=== PATIENT | female | born 1950 | race Caucasian/White ===

== ENCOUNTER 2023-09-19 14:30 | Outpatient (RCR) | payer MEDICARE, BC, SELFPAY | END 2023-12-12 08:47 | disposition home or self-care (01) | PROVIDERS: PCP Family Medicine; Visit Provider Family Medicine | DX: N81.11 Cystocele, midline (principal); R27.8 Other lack of coordination; M79.604 Pain in right leg; R39.15 Urgency of urination; Z51.89 Encounter for other specified aftercare | CPT/HCPCS: 97110; 97112; 97161; 97535 ==

== ENCOUNTER 2024-11-19 08:27 | Inpatient (IN) | payer MEDICARE, BC, SELFPAY ==
[2024-11-19] VITALS (26 sets, daily range): BP systolic 105–125; BP diastolic 67–107; PULSE 83–156; RESP 13–25; TEMP 36.6–36.8; O2SAT 87–97; BMI 35.8
--- OUTSIDE RECORDS SUMMARY | 2024-11-19 08:29 | XMS_ITS | Clinical Summary ---
Author Organization [facility] Address [address] [place] [id number] Care Team Providers Care Industrial Order Clerk Name Role Phone CliffordeddAudrey Primary Care Provider [phone] Allergies Active Allergy Reactions Criticality Noted Date Comments Gluten Intolerance-Can't Take Medium 09/24/2015 Joint and muscle pain Oxycodone Nausea And Vomiting 09/30/2020 Hydrocodone-Acetamino phen Other - Describe In Comment Field 08/07/2014 Vomiting Medications omega-3 fatty acids-vitamin E (FISH OIL) 1,000 mg cap Take by mouth. 0 01/08/20 14 Active calcium-vits X9-Q-M8-minerals 166.75 mg- 166.75 unit cap Take by mouth. 0 10/18/19 18 Active famotidine (PEPCID) 10 mg tablet Take 1 Tablet by mouth once daily. Active fluticasone (50 mcg per actuation) nasal solution (FLONASE)Indicati ons:Postnasal drip Inhale 2 Sprays in both nostrils once daily. 16 g 3 05/13/19 25 Active amLODIPine (NORVASC) 5 mg tabletIndications :Essential hypertension Take 1 Tablet (5 mg) by mouth once daily. 90 Tablet 3 05/13/19 25 Active losartan (COZAAR) 25 mg tabletIndications :Essential hypertension Take 1 Tablet (25 mg) by mouth once daily. 90 Tablet 3 05/13/19 25 Active diclofenac topical (VOLTAREN) 1 % gelIndications:Os teoarthritis, unspecified osteoarthritis type, unspecified site Apply 2-4 g topically to affected area(s) four times daily. Affected joints as needed 450 g 3 05/13/19 25 Active rosuvastatin 10 mg tabletIndications :Other hyperlipidemia TAKE 1 TABLET (10 MG) BY MOUTH AT BEDTIME. 90 Tablet 3 05/21/19 25 Active alendronate 70 mg tabletIndications :Age-related osteoporosis without current pathological fracture TAKE 1 TABLET (70 MG) BY MOUTH ONCE A WEEK IN THE MORNING. TAKE ON EMPTY STOMACH WITH FULL GLASS OF WATER. DO NOT LIE DOWN FOR 1 HR. 13 Tablet 05/21/19 25 Active omeprazole (PRILOSEC) 40 mg Delayed-Release capsuleIndication s:Dysphagia, unspecified type Take 1 Capsule (40 mg) by mouth once daily. 90 Capsule 3 11/15/19 25 Active ipratropium (ATROVENT NASAL) 42 mcg (0.06 %) nasal sprayIndications: Chronic rhinitis Inhale 2 Sprays into affected nostril(s) 3 times daily if needed for Rhinitis. 15 mL 3 11/14/19 25 Active omeprazole (PRILOSEC) 40 mg Delayed-Release capsuleIndication s:Dysphagia, unspecified type TAKE 1 CAPSULE (40 MG) BY MOUTH ONCE DAILY. 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 She also is undersized for repair and is not in the high risk group. I would advise her to undergo a CT in 2 to 3 Age-related osteoporosis wit hout current pathological fracture 10/04/2019 Overview (10/04/2019): T score -2.5 on dexa 09/2019, recommend start fosamax Advanced directives, counseling/discussion 02/14 Overview (02/15/2016): FULL CODE, 02/15/2016 Prolapse of female pelvic organs 08/26/2013 Gluten intolerance 09/22/2011 Colon polyp 02/24/2011 Overview (05/18/2015): Colonoscopy 02/2011 polyp repeat in 5 years Colonoscopy 05/2015 incomplete colonoscopy, recommend CT colonography Arthritis 01/24/2011 Other and unspecified hyperlipidemia 05/07/2007 Overview (05/07/2007): diet controlled - lipids 2004 wnl Unspecified essential hypertension 05/07/2007 Esophageal reflux 05/07/2007 Encounters Date Type Department Care Team Description 11/19/2024 11:20 AM CDT Office Visit [facility] [address] [facility] [place] [address] MD Heart Problem 11/19/2024 Travel 11/13/2024 11:30 AM CDT Office Visit [facility] [address] [place] [address] Tona Escobedo MD Consult (Change in voice /Feeling of foreign body in throat ) 11/12/2024 Refill [facility] [address] [place] [address] Audrey Matute DO Refill Request (Omeprazole) 11/12/2024 Travel 11/10/2024 1:33 PM CDT - 11/10/2024 11:59 PM CDT Hospital Encounter [facility] [address] [place] [address] Audrey Matute DO SOB (shortness of breath) 11/10/2024 Travel 11/07/2024 Telephone [facility] [address] [place] [address] Audrey Matute DO Appointment Request (echocardiogram) 11/07/2024 Orders Only [facility] [address] [place] [place] [address] Audrey Matute DO <No scans attached> 11/06/2024 11:00 AM CDT Ancillary Procedure [facility] [address] [facility] [place] [address] 11/06/2024 10:25 AM CDT Office Visit [facility] [address] [place] [address] Audrey Matute, Follow Up (medication); Shortness Of Breath (Constant SOB, started about 6 weeks ago) 11/06/2024 Travel 11/04/2024 Travel from Last 3 Months Immunizations Immunization Administration Dates Next Due COVID-19 vaccine ([employer] 30mcg/0.3mL) TORRIE BARRAGAN 02/15/2021,07/08/2020,06/17/2020 Pneumococcal Poly,23-Valent (Pneumovax) 04/04/19 18 Pneumococcal conj 13-Valent (Prevnar 13) 016 Family History Medical History Relation Name Comments Blood Disease Maternal Grandfather multip le blood clots, unknown clotting disorder status Cancer-breast Maternal Grandmother Hyperlipidemia Mother Other Mother aortic aneurysm Anesthesia Problem No Family History Cancer-colon No Family History Cancer-ovarian No Family History Relation Name Status Comments Maternal Grandfather Maternal Grandmother Mother (Age 84) aortic ane urysm. ascending Social History Tobacco Use Types Packs/Day Years Used Date Smoking Tobacco: Never Smokeless Tobacco: Never Tobacco Cessation:Counseling Given: No Alcohol Use Standard Drinks/Week Comments No 0 (1 standard drink = 0.6 oz pur e alcohol) PHQ-2 Answer Date Recorded PHQ-2 TOTAL SCORE 0 05/12/2024 Social Connections Answer Date Recorded Do you often feel lonely or isolated from those around you? 0 05/12/2024 Financial Resource Strain Answer Date R ecorded Difficulty of Paying Living Expenses 3 05/12/2024 Difficulty of Paying Living Expenses Not on file 05/12/2024 Food Insecurity Answer Date Recorded Do you worry your food will run out before you are able to buy more? 1 05/12/2024 Transportation Needs Answer Date Record ed Does lack of transportation keep you from medica l appointments? 1 05/12/2024 Does lack of transportation keep you from work, meetings or getting things that you need? 1 05/12/2024 Housing Stability Answer Date Recorded What is your housing situation today? 1 05/12/2024 Utilities Answer Date Recorded Do you have trouble paying f or utilities (for example, heat, electricity, water, phone)? 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 Gender Identity Not on file Sexual Orientation Not on file Obstetrics History Para Term AB IAB SAB Ectopic Multiple Livin g Live Births 3 3 3 3 Date Outcome GA Total Labor Labor/2nd/3rd Weight Sex Type Anes PTL Lilibeth A1 A5 Name Clin Term 4.03 kg (8 lb 14 oz) Comments:foreceps deli very Term Term Last Filed Vital Signs Vital Sign Reading Time Taken Comments Blood Pressure 121/91 11/06/2024 10:26 AM CDT Pulse 88 11/06/2024 10:26 AM CDT Temperature 36.9 C (98.5 F) 07/04/2021 10:44 AM CDT Respiratory Rate 16 09/02/2017 2:11 PM CDT Oxygen Saturation 97% 11/06/2024 10: 26 AM CDT Inhaled Oxygen Concentration - - Weight 89.7 kg (197 lb 12.8 oz) 025 10:26 AM CDT Height 157.5 cm (5' 2.01) 05/12/2024 2:34 PM CD T Body Mass Index 36.17 05/12/2024 2:34 PM CDT Plan of Treatment Upcoming Encounters Date Type Department Care Team (Late st Contact Info) Description 11/19/2024 11:20 AM CDT Office Visit [facility] [address] [place] [address] MD [address] [place] [address] Heart Problem 11/25/2024 7:55 AM CDT Office Visit [facility] [address] [place] [address] Audrey Matute DO [address] [place] [address] Health Maintenance Due Date Last Done Comments Zoster (shingles) series for age 50+ (1 of 2) 2000 Tetanus booster 01/24/2021 01/24/2011 (Declined) COVID-19 vaccine series ( season) 2024 02/15/2021, 07/08/2020, 06/17/2020 Influenza Vaccine (#1) 2024 BMI (ht and wt on same day) for age 18+ 05/12/2025 05/12/2024, 05/01/2023, 07/04/2021, Additional history exists Depression screening for age 12+ 05/12/2025 05/12/2024, 05/01/2023, 02/16/2022, Additional history exists Medicare Wellness for age 65+ 05/13/2025 05/12/2024, 05/01/2023, 02/16/2022, Additional history exists Mammogram for age 45-75 05/15/2025 05/16/19 25, 05/01/2023, 06/09/2021, Additional history exists RSV vaccine for adults or (1 - 1-dose 75+ series) 2025 Colonoscopy through age 75 10/13/202510/13, 10/14/2015, 10/14/2015, Additional history exists Lipids for age 45-75 05/12/2029 05/12/2024, 05/01/2023, 12/15/2021, Additional history exists Pneumococcal series for age 50+ Completed 04/04/2017, 02/15/2016 Hepatitis C screening for age 18-79 Completed 09/24/2019, 09/24/2019 DEXA/DXA scan for age 65+ Completed 2022, 09/24/2019, 01/09/2017, Additional history exists Hepatitis B series for 19+ Aged Out N o longer eligible based on patient's age to complete this topic Procedures Procedure Name Priority Date/Time Associated Diagnosis Comments COMPLETE PULMONARY FUNCTION TEST WITH BRONCHODILATOR Routine 11/10/2024 2:00 PM CDT SOB (shortness of breath) PRO-BNP Routine 11/06/2024 11:55 AM CDT SOB (shortness of breath) BASIC METABOLIC PANEL Routine 11/06/2024 11:55 AM CDT SOB (shortness of breath) HEMOGLOBIN Routine 11/06/2024 11:55 AM CDT SOB (shortness of breath) XR CHEST 2 VIEWS PA AND LATERAL Routine 11/06/2024 11:51 AM CDT SOB (shortness of breath) XR MAMMO RHONDA BILAT SCREEN Routine 05/15/2024 1:56 PM CDT Inguinal hernia LIPID PANEL W REFLEX MEASURED LDL Routine 05/12/2024 4:23 PM CDT Essential hypertension Other hyperlipidemia XR DXA BONE DENSITY 2 SITES AXIAL Routine 02/07/2023 11:50 AM CUSTOMER SERVICE OFFICER Age-related osteoporosis without current pathological fracture ANTI HCV Routine 09/24/2019 12:27 PM CDT Need for hepatitis C screening test SCAN-COLONOSCOPY 10/14/2015 12:0 0 AM CDT from Last 3 Months or Most Recently Relevant to Health Maintenance Results * COMPLETE PULMONARY FUNCTION TEST WITH BRONCHODILATOR (11/10/2024 2:00 PM CDT) Narrative [facility] - 11/10/2024 2:00 PM CDT Jose Silva MD 11/11/2024 6:53 PM Pulmonary Function Tests - Results and Interpretation DATE OF SERVICE: 11/10/2024 FINDINGS: FEV1, FVC and FEV1 to FVC ratio are within normal limits. There is no significant bronchodilator response. Lung volumes are within normal limits. Diffusing capacity corrected for hemoglobin is increased. Flow-volume loop is within normal limits. INTERPRETATION: Increased diffusing capacity corrected for hemoglobin. Normal spirometry and lung volumes. An increase in diffusing capacity can be seen in patients with asthma or obesity. Clinical correlation is recommended. Use caution when interpreting lung volume results as patient had difficulty with technique during lung volume measurements. Jose Silva MD us Audrey Matute DO PFT ORD Final Resu lt [facility] [place], [place] * HEMOGLOBIN (11/06/2024 11:55 AM CDT) HEMOGLOBIN 14.5 11.7 - 15.5 g/dL 11/07/2024 3:49 AM CDT [facility] MCV 92.2 80.0 - 100.0 fL 11/07/2024 3:49 AM CDT [facility] Blood BLOOD SPECIMEN / Unknown [facility] / Unknown 11/06/2024 11:55 AM CDT 11/06/2024 11:55 AM CDT Audrey Matute DO HEMATOLOGY Final Resu lt Performing Organization Address [facility]/ZIP Co de Phone Number [facility] [address] [address], [place] [phone] * (ABNORMAL) PRO-BNP (11/06/2024 11:55 AM CDT) NT PROBNP 914(H) <125 pg/mL 11/07/2024 1:40 PM CDT [facility] Blood BLOOD SPECIMEN / Unknown [facility] / Unknown 11/06/2024 11:55 AM CDT 11/06/2024 11:55 AM CDT Audrey Matute DO SEND OUTS Final Resu lt Performing Organization Address [facility] de Phone Number [facility] [address] [address], [place] [phone] * (ABNORMAL) BASIC METABOLIC PANEL (11/06/2024 11:55 AM CDT) SODIUM 141 135 - 146 mmol/L 11/07/2024 4:48 AM CDT [facility] POTASSIUM 4.2 3.5 - 5.3 mmol/L 11/07/2024 4:48 AM CDT [facility] CARBON DIOXIDE 26 20 - 32 mmol/L 11/07/2024 4:48 AM CDT [facility] GLUCOSE 105(H) 65 - 99 mg/dL 11/07/2024 4:48 AM CDT [facility] Comment: Fasting reference interval For someone without known diabetes, a glucose value between 100 and 125 mg/dL is consistent with prediabetes and should be confirmed with a follow-up test. CALCIUM 9.8 8.6 - 10.4 mg/dL 11/07/2024 4:48 AM CDT [facility] CREATININE 0.71 0.60 - 1.00 mg/dL 11/07/2024 4:48 AM CDT [facility] BUN/CREATININE RATIO SEE NOTE: 6 - 22 (calc) 11/07/2024 4:48 AM CDT [facility] Comment: Not Reported: BUN and Creatinine are within reference range. EGFR 89 > OR = 60 mL/min/1. 73m2 11/07/2024 4:48 AM CDT [facility] UREA NITROGEN (BUN) 15 7 - 25 mg/dL 11/07/2024 4:48 AM CDT [facility] ELECTROLYTE BALANCE 11 7 - 17 mmol/L (calc) 11/07/2024 4:48 AM CDT [facility] CHLORIDE 104 98 - 110 mmol/L 11/07/2024 4:48 AM CDT [facility] Blood BLOOD SPECIMEN / Unknown [facility] / Unknown 11/06/2024 11:55 AM CDT 11/06/2024 11:55 AM CDT us Audrey Matute DO CHEMISTRY Final Resu lt [facility] [place] [address] [place] [address], * XR CHEST 2 VIEWS PA AND LATERAL (11/06/2024 11:51 AM CDT) Anatomical Region Laterality Modality CHEST, THORAX, Lung, HEART Compu sharan Radiography 11/06/2024 2:51 PM CDT Impressions 11/06/2024 2:51 PM CDT Mild pulmonary fibrosis/COPD. No acute infiltrate. Dictated by Chilo Marmolejo MD @ 11/06/2024 2:51:02 PM (Electronically Signed) Narrative 11/06/2024 2:51 PM CDT For Patients: As a result of the Cures Act, medical imaging exams and procedure reports are released immediately into your electronic medical record. You may view this report before your referring provider. If you have questions, please contact your health care provider. INDICATION: SOB (shortness of breath) TECHNIQUE: Chest 2 views COMPARISON: 03/17/2019 FINDINGS: Cardiomegaly. Bibasilar fibrosis. No pneumothorax. No pleural effusion. Degenerative disc disease. No consolidative infiltrate. Procedure Note Chilo Marmolejo MD - 11/06/2024 For Patients: As a result of the Cures Act, medical imagingexams and procedure reports are released immediately into your electronicmedical record. You may view this report before your referring provider.If you have questions, please contact your health care provider. INDICATION: SOB (shortness of breath) TECHNIQUE: Chest 2 views COMPARISON: 03/17/2019 FINDINGS: Cardiomegaly. Bibasilar fibrosis. No pneumothorax. No pleural effusion.Degenerative disc disease. No consolidative infiltrate. IMPRESSION: Mild pulmonary fibrosis/COPD. No acute infiltrate. Dictated by Chilo Marmolejo MD @ 11/06/2024 2:51:02 PM (Electronically Signed) Audrey Matute DO GENERAL IMAGING Final Resu lt * XR MAMMO RHONDA BILAT SCREEN (05/15/2024 1:56 PM CDT) Anatomical Region Laterality Modality BREASTS, Breast Left, Breast Right Bilateral Mammography Impressions 05/15/2024 3:12 PM CDT There is no radiographic evidence for malignancy. Recommend annual mammograms. MAMMOGRAM ASSESSMENT: ACR 1 Negative PATIENTS: You will also receive a letter with your examination results in an easy to read format. If you have questions about your results, please contact your referring provider. Narrative 05/15/2024 3:12 PM CDT For Patients: As a result of the Cures Act, medical imaging exams and procedure reports are released immediately into your electronic medical record. You may view this report before your referring provider. If you have questions, please contact your health care provider. XR MAMMO RHONDA BILAT SCREEN [[id number]] CLINICAL HISTORY: This is an asymptomatic 73 y.o. patient. INDICATION FOR EXAM: Mammogram Screening. TECHNIQUE: CC and MLO views were obtained. This study was evaluated with the assistance of Computer-Aided Detection. Breast Tomosynthesis was used in interpretation. COMPARISON FILM: Yes 05/01/23 [facility] 06/09/21 [facility] FINDINGS: The breasts are heterogeneously dense, which may obscure small masses. There are no dominant masses, suspicious micro calcifications or areas of architectural distortion. Audrey Matute DO MAMMO Final Resu lt * (ABNORMAL) LIPID PANEL W REFLEX MEASURED LDL (05/12/2024 4:23 PM CDT) CHOLESTEROL, TOTAL 217(H) <200 mg/dL [facility] HDL CHOLESTEROL 109 > OR = 50 mg/dL [facility] TRIGLYCERIDES 82 <150 mg/dL [facility] LDL-CHOLESTEROL 91 mg/dL (calc) [facility] Comment: Reference range: <100 Desirable range <100 mg/dL for primary prevention; <70 mg/dL for patients with CHD or diabetic patients with > or = 2 CHD risk factors. LDL-C is now calculated using the Ramiro-Chance calculation, which is a validated novel method providing better accuracy than the Friedewald equation in the estimation of LDL-C. Ramiro SS et al. ALISHA. 2013;310(19): 8620-8233 (http://education.[employer]/faq/VHG778) CHOL/HDLC RATIO 2.0 <5.0 (calc) [facility] NON HDL CHOLESTEROL 108 <130 mg/dL (calc) [facility] Comment: For patients with diabetes plus 1 major ASCVD risk factor, treating to a non-HDL-C goal of <100 mg/dL (LDL-C of <70 mg/dL) is considered a therapeutic option. Blood BLOOD SPECIMEN / Unknown 05/12/2024 4:23 PM CDT 05/12/2024 4:24 PM CDT Narrative [facility] - 05/13/2024 4:06 AM CDT FASTING:NO FASTING: NO Audrey Matute DO CHEMISTRY Final Resu lt [facility] [address] [place] [address], [facility] [address] [place] [address] * (ABNORMAL) XR DXA BONE DENSITY 2 SITES AXIAL (02/07/2023 11:50 AM CUSTOMER SERVICE OFFICER) Anatomical Region Laterality Modality Spine, HIPS, HIPL, HIPR Other Impressions 02/12/2023 7:58 AM CUSTOMER SERVICE OFFICER Osteopenia. Consider a drug holiday from bisphosphonates if indicated. Due to the stability of the bone density, continue present medication if indicated. RECOMMENDATIONS: The National Osteoporosis Foundation recommends pharmacologic treatment for patients with T-scores of -2.5 or less, patients with prior history of fragility fractures, or patients with 10-year probability of greater than 3% at hips or greater than 20% of suffering major osteoporotic fractures. Recommend continued optimization of calcium and vitamin D intake through dietary means and/or supplementation and regular exercise. Continue current Alendronate (Fosamax) medication treatment. Francisca Renae PA-C [facility] 02/12/2023 Narrative 02/12/2023 7:58 AM CUSTOMER SERVICE OFFICER For Patients: Results are automatically released to your [facility] account once available, in compliance with federal regulations. This means that you may see your results before your provider has had a chance to review them. Please allow 2-3 business days for your provider to comment on the results. XR DXA Bone Mineral Density (BMD) EXAM LOCATION: [address] [address] PATIENT NAME: Ana Carrillo DATE OF : 1950 EXAM DATE: 02/07/2023 REQUESTING PROVIDER: Audrey Matute DO GENDER AT : female HEIGHT: 5' 2.5 (07/04/2021) WEIGHT: 185 lb (07/04/2021) MENOPAUSAL STATUS: Postmenopausal RACE/ETHNICITY: White RISK FACTORS: Family History of Osteoporosis and White Race CURRENT MEDICATION FOR BONE LOSS: Alendronate (Fosamax) INDICATION: Follow-up of existing osteoporosis and Post-Menopause COMPARISON DATE(S): 2019 DXA scans are compared to prior studies for a patient only when the two (or more) studies were performed on the same scanner. It is not possible to compare data generated on one scanner to data from another because there are not standards in DXA equipment. This applies even if the two scanners are made by the same metal filer. PROCEDURE: Dual-energy x-ray absorptiometry performed with routine technique. Reporting is completed in the form of a T-score. The T-score represents the standard deviation from peak bone mass based on young healthy adult. A Z-score is used for diagnosis in premenopausal women, and for men under the age of 50. FINDINGS: RESULT LUMBAR SPINE L1 - L4 BMD: 1.277 g/cm2 T-Score: + 0.7 Z-Score: + 1.7 Change from prior in 2020: Increase 18.5%. RESULTS FEMUR Left femoral neck BMD: 0.784 g/cm2 T-Score: - 1.8 Z-Score: - 0.4 Change from prior in 2020: Increase 12.2%. Right femoral neck BMD: 0.735 g/cm2 T-Score: - 2.2 Z-Score: - 0.8 Change from prior in 2020: Increase 7.1%. Left hip BMD: 0.887 g/cm2 T-Score: - 1.0 Z-Score: + 0.2 Change from prior in 2020: Increase 6.0%. Right hip BMD: 0.792 g/cm2 T-Score: - 1.7 Z-Score: - 0.6 Change from prior in 2020: Increase 4.1%. WHO criteria: Normal: T-score at or above -1 SD Osteopenia: T-score between -1.1 and -2.4 SD Osteoporosis: T-score at or below -2.5 SD Audrey Matute DO DEXA Final Resu lt * (ABNORMAL) ANTI HCV (09/24/2019 12:27 PM CDT) HEPATITIS C ANTIBODY Reactive, Preliminary Positive(A) Non-React finesse 09/25/2019 6:58 AM CDT [facility] Comment:Presumptive evidence of antibodies to HCV. Reflexed to HCV RNA Quant (See separate report). Blood BLOOD SPECIMEN / Unknown Venipuncture / Unknown 09/24/2019 12:27 PM CDT 09/24/2019 12:27 PM CDT us Audrey Matute DO SEND OUTS Final Resu lt [facility] [address] [place] [address], [place] * SCAN-COLONOSCOPY (10/14/2015 12:00 AM CDT) us Scanner OTHER Final Result from Last 3 Months or Most Recently Relevant to Health Maintenance Insurance [employer] [place] BLUE MR PB ONLY MEDICARE PART B HB ONLY [employer] [place] [employer] MR PB ONLY Care Teams Industrial Order Clerk Relationship Specialty Start Date End Date Audrey Matute DO [address] [place] [address] PCP - General Family Practice 09/02/17
--- OUTSIDE RECORDS SUMMARY | 2024-11-19 08:30 | XMS_ITS | Clinical Summary ---
Author Organization [facility] Address [address] [place] [address] Care Team Providers Care Clinical Documentation Specialist Name Role Phone Audrey Matute Primary Care Provider [phone] Allergies Active Allergy Reactions Criticality Noted Date Comments Gluten Meal Muscle Pain (Myalgia) 05/07/2018 Hydrocodone-Acetaminophen Nausea and Vomiting Low 0 04/10/2018 Medications rosuvastatin (CRESTOR) 10 MG tablet Take 10 mg by mouth daily Active hydrochlorothiaz loulou (HYDRODIURIL) 25 MG tablet Take 25 mg by mouth daily Active omeprazole (PRILOSEC) [address] capsule Take 40 mg by mouth daily Active amLODIPine (NORVASC) 5 MG tablet Take 5 mg by mouth daily Active calcium carbonate 600 mg-vitamin D 400 units (CALCIUM 600 + D) 600-400 MG-UNIT per tablet Take 1 tablet by mouth 2 times daily Active fish oil-omega-3 fatty acids 1000 MG capsule Take 1 g by mouth 2 times daily Active Multiple Vitamins-Mineral s (VITEYES AREDS FORMULA/LUTEIN PO) Take 1 tablet by mouth daily Active oxyCODONE (ROXICODONE) 5 MG tabletIndication s:Status post total right knee replacement Take 1-2 tablets (5-10 mg) by mouth every 3 hours as needed for moderate to severe pain 70 tablet 9 Active acetaminophen (TYLENOL) 325 MG tabletIndication s:Status post total right knee replacement Take 2 tablets (650 mg) by mouth every 4 hours as needed for other (multimodal surgical pain management along with NSAIDS and opioid medication as indicated based on pain control and physical function.) 100 tablet 1 9 Active aspirin (ASA) 325 MG EC tabletIndication s:VTE Prophylaxis Take 1 tablet (325 mg) by mouth 2 times daily 120 tablet 9 Active hydrOXYzine (ATARAX) 10 MG tabletIndication s:Status post total right knee replacement Take 1 tablet (10 mg) by mouth every 6 hours as needed for itching 60 tablet 1 9 Active Active Problems Problem Noted Date Diagnosed Date S/P total knee arthroplasty 05/07/2018 Social History Tobacco Use Types Packs/Day Years Used Date Smoking Tobacco: Never Smokeless Tobacco: Never Alcohol Use Standard Drinks/Week Comments Yes 0 (1 standard drink = 0.6 oz pur e alcohol) Rarely Comments No Sex and Gender Information Value Date Recorded Sex Assigned at Not on file Legal Sex Female 9:33 AM [employer] Gender Identity Not on file Sexual Orientation Not on file Last Filed Vital Signs Vital Sign Reading Time Taken Comments Blood Pressure 135/81 05/10/2018 7:53 AM [employer] Pulse 76 05/10/2018 7:53 AM [employer] Temperature 37.3 C (99.1 F) 05/10/2018 7:53 AM [employer] Respiratory Rate 18 05/10/2018 7:53 AM [employer] Oxygen Saturation 94% 05/10/2018 7:53 AM [employer] Inhaled Oxygen Concentration - - Weight 77.6 kg (171 lb) 05/07/2018 5:41 AM [employer] Height 157.5 cm (5' 2) 05/07/2018 5:41 AM [employer] Body Mass Index 31.28 05/07/2018 5:41 AM [employer] Plan of Treatment Not on file Medical Devices Implanted Type Area Automation Tester Device Identifier Shelf Expiration Date Model / Serial / Lot Bone Cement Simplex Full Dose 6191-1-001 Implanted:Qty: 1 on 05/07/2018 by Kenneth Dela Cruz MD at [facility] Cement, Bone Right: Knee [employer] 06/02/2020 6191-1-001 / / [id number] Bone Cement Simplex Full Dose 6191-1-001 Implanted:Qty: 1 on 05/07/2018 by Kenneth Dela Cruz MD at [facility] Cement, Bone Right: Knee [employer] 07/02/2020 6191-1-001 / / [id number] Imp Insert Baseplate Tibial Howm Tri 3 [id number] Implanted:Qty: 1 on 05/07/2018 by Kenneth Dela Cruz MD at [facility] Total Joint Component /Insert Right: Knee [employer] 03/11/2023 5521-B-[id number] / / [id number] Imp Comp Fem Strk Triathln Ps Rt 3 [id number] Implanted:Qty: 1 on 05/07/2018 by Kenneth Dela Cruz MD at [facility] Total Joint Component /Insert Right: Knee [employer] 01/14/2023 5515-F-302 / / [id number] Imp Comp Patella Tri 29x8mm Implanted:Qty: 1 on 05/07/2018 by Kenneth Dela Cruz MD at [facility] Total Joint Component /Insert Right: Knee [employer] 08/07/2022 5550-L-298 / / [id number] Imp Insert Tibial Howm Tri Size 3 09mm 5532-[id number] Implanted:Qty: 1 on 05/07/2018 by Kenneth Dela Cruz MD at [facility] Total Joint Component /Insert Right: Knee [employer] 11/19/2022 5532-[id number] / / [id number] Insurance [facility] Advance Directives For more information, please contact: [phone] * Full Code (Latest Code Status on File) Date Activated Date Inactivated Comments 05/07/2018 1:11 PM 05/10/2018 3:34 PM Question Answer Comments Code status determined by: Unable to det ermine; FULL CODE until documents or legal decision maker available Care Teams Clinical Documentation Specialist Relationship Specialty Start Date End Date Audrey Matute PCP - General 04/18/18
--- NOTE | 2024-11-19 08:50 | ED.ARRPALP ---
HPI - Arrhythmia/Palpitations General Time Seen by Provider: 08:50 Date Seen: 11/19/24 Chief Complaint: Arrhythmia/Palpitations Stated Complaint: Shortness of breath Time Seen by Provider: 11/19/24 08:49 Source: patient and RN notes reviewed Mode of arrival: ambulatory Limitations: no limitations History of Present Illness HPI narrative: This 74-year-old female is coming in from [facility] where she was found to be in atrial fibrillation with RVR. She was going in to do a cardiac stress test today. For about 6 weeks she has been noticing shortness of breath and dyspnea on exertion. She has no chest pain. She is not been in this rhythm before. Has no prior cardiac history. Related Data Home Medications ?Medication ?Instructions ?Recorded ?Confirmed amlodipine 5 mg tablet 5 mg PO DAILY 11/19/24 11/19/24 losartan 25 mg tablet 25 mg PO DAILY 11/19/24 11/19/24 omeprazole 40 mg capsule,delayed 40 mg PO DAILY 11/19/24 11/19/24 release rosuvastatin 10 mg tablet 10 mg PO QPM 11/19/24 11/19/24 Allergies Allergy/AdvReac Type Severity Reaction Status Date / Time narcotics AdvReac Intermediate vomiting Uncoded 11/19/24 08:37 Review of Systems Status of ROS: Reports: 6 or more systems reviewed and unremarkable except as noted in History and below PFSH PFSH Social History Smoking Status: Never smoker How often do you have a drink containing alcohol: never AUDIT-C Alcohol total score: 0 Non-prescribed substance use: denies use Exam Const: Vital Signs, click to edit/add: Vital Signs - 24 hr 11/19/24 08:33 11/19/24 08:33 11/19/24 08:36 Temperature 98.2 F Pulse Rate 130 H Pulse Rate [Pulse Oximeter] 156 H Respiratory Rate 18 25 H Blood Pressure 121/100 H Blood Pressure [Ri ght Upper Arm] 121/100 H Pulse Oximetry 96 92 95 Oxygen Delivery Me thod Room Air 11/19/24 08:37 11/19/24 08:45 11/19/24 09:00 Temperature Pulse Rate 129 H 144 H 141 H Pulse Rate [Pulse Oximeter] Respiratory Rate 19 13 Blood Pressure Blood Pressure [Ri ght Upper Arm] Pulse Oximetry 96 95 94 Oxygen Delivery Me thod 11/19/24 09:01 11/19/24 09:15 11/19/24 09:30 Temperature Pulse Rate 134 H 135 H 119 H Pulse Rate [Pulse Oximeter] Respiratory Rate 24 Blood Pressure 119/107 H Blood Pressure [Ri ght Upper Arm] Pulse Oximetry 93 94 91 Oxygen Delivery Me thod 11/19/24 09:31 11/19/24 09:45 11/19/24 10:00 Temperature Pulse Rate 116 H 133 H 115 H Pulse Rate [Pulse Oximeter] Respiratory Rate 15 15 Blood Pressure 125/96 H Blood Pressure [Ri ght Upper Arm] Pulse Oximetry 91 91 89 Oxygen Delivery Me thod 11/19/24 10:02 11/19/24 10:15 11/19/24 10:30 Temperature Pulse Rate 121 H 134 H 111 H Pulse Rate [Pulse Oximeter] Respiratory Rate 22 22 13 Blood Pressure 107/67 Blood Pressure [Ri ght Upper Arm] Pulse Oximetry 91 93 90 Oxygen Delivery Me thod This 74-year-old female is alert, interactive, no apparent distress. She is lying in the bed. Sclera clear, face atraumatic, speech normal. Neck is supple, no adenopathy, no jugular venous distension. She is able sit up, lungs are clear, no wheezing or crackles, no tachypnea, no accessory muscle use. Heart sounds mildly distant but fast and irregular, do not hear any murmur. Abdomen soft, nontender, nondistended, no organomegaly. She has no pitting edema of her lower extremities. Documenting provider has reviewed patient's vital signs: yes Course Course ED Course: I do see patient is on amlodipine and losartan. Will give her 5 mg IV Cardizem and see how she tolerates this, will titrate to affect. I have reviewed with her the importance of rate control as well as anticoagulation for stroke prevention with this rhythm. We discussed likely hospitalization as she is in atrial fibrillation with RVR. She has been having symptoms for about 6 weeks, do not think it is likely that we are going to be able to capture rate control and establish consistent control within an ED visit. She will be on cardiac monitoring pulse oximetry, appropriate labs have been ordered. She has no chest pain. Will get a portable chest x-ray looking for any occult CHF. Reevaluation(s) Time of Reevaluation #1: 09:37 Reevaluation #1: Her magnesium is 1.6, will replace with a g of IV magnesium. We will see where she is with rate control, chest x-ray indicative of some fluid overload /CHF. If we have blood pressure support, will give dose of IV Lasix. Patient is likely to require hospitalization. Time of Reevaluation #2: 09:59 Reevaluation #2: Patient's rate is in the 120s, came down slightly. Given her chest x-ray with congestive heart failure, I am going to try IV metoprolol 5 mg and an oral dose of 25. Time of Reevaluation #3: 10:40 Reevaluation #3: Went back in to talk to patient, her is here. We reviewed atrial fibrillation again, stroke risk, need for rate control. We discussed that she has some fluid overload or congestive heart failure likely from being in this rhythm. When talking to her, her heart rate was upper 90s to 110, much improved from her arrival. Her oxygenation was 88-90%, did see good waveform. Her systolic blood pressure is at 1:05 a.m. right now. She seems to be a baseline, do think we can give her 20 mg IV Lasix, will also have nursing staff give her supportive 1 L nasal cannula oxygen. Consultations Consultation #1: Did speak with Dr. Wang the hospitalist. She does accept patient. Patient at some point is likely going to need some Lasix but does not needed emergently. She did request a order Eliquis, did give her dose of 5 mg. Did look in her outpatient records and no EKG was done prior to today. She has not had a recent echo. She did have a proBNP on November 06 which was 914. Time: 10:37 Vital Signs Vital signs: Initial Vital Signs Temperature 98.2 F 11/19/24 08:33 Temperature Source Temporal Artery Scan 11/19/24 08:33 Pulse Rate 156 H 11/19/24 08:33 Respiratory Rate 18 11/19/24 08:33 Blood Pressure 121/100 H 11/19/24 08:33 Blood Pressure Mean 107 H 11/19/24 08:33 Blood Pressure Position Supine 11/19/24 08:33 Pulse Oximetry 96 11/19/24 08:33 Oxygen Delivery Method Room Air 11/19/24 08:33 Vital Signs Temperature 98.2 F 11/19/24 08:33 Pulse Rate 156 H 11/19/24 08:33 Respiratory Rate 18 11/19/24 08:33 Blood Pressure 121/100 H 11/19/24 08:33 Pulse Oximetry 96 11/19/24 08:33 Oxygen Delivery Method Room Air 11/19/24 08:33 Temperature 98.2 F 11/19/24 08:33 Pulse Rate 111 H 11/19/24 10:30 Respiratory Rate 13 11/19/24 10:30 Blood Pressure 107/67 11/19/24 10:02 Pulse Oximetry 90 11/19/24 10:30 Oxygen Delivery Method Room Air 11/19/24 08:33 Medications Administered Medications: Discontinued Medications Generic Name Dose Route Start Last Admin Trade Name Freq PRN Reason Stop Dose Admin Diltiazem HCl 5 mg 11/19/24 09:00 11/19/24 09:14 Diltiazem 5 Mg/Ml Inj IVP 11/19/24 09:01 5 mg ONCE ONE Administration Magnesium Sulfate/Dextrose 1 gm in 100 mls @ 100 mls/hr 11/19/24 09:36 11/19/24 10:19 Magnesium Sulf 1 G/100 Ml IVPB 11/19/24 10:35 100 mls/hr ONCE ONE Administration Metoprolol Tartrate 5 mg 11/19/24 09:59 11/19/24 10:14 Metoprolol Tartrate 1 Mg/Ml Inj IVP 11/19/24 10:00 5 mg ONCE ONE Administration Metoprolol Tartrate 25 mg 11/19/24 09:59 11/19/24 10:13 Metoprolol Tartrate 25 Mg Tablet PO 11/19/24 10:00 25 mg ONCE ONE Administration MDM - Arrhythmia/Palpitations Lab Data Attestation: I reviewed the patient's lab results. Labs: Lab Results 11/19/24 Range/Units 08:52 WBC 6.16 (4.50-11.00) K/uL RBC 4.90 (4.00-5.20) m/uL Hgb 14.1 (12.0-16.0) gm/dL Hct 44.1 (33.0-51.0) % MCV 90 (80-100) fL MCH 29 (26-34) pg MCHC 32 (32-36) gm/dL RDW Coeff of Mony 13.9 (11.5-15.5) % Plt Count 223 (140-440) K/uL Neut % (Auto) 55.5 (42.0-72.0) % Lymph % (Auto) 32.5 (20-44) % Taney % (Auto) 8.9 (0.0-11.0) % Eos % (Auto) 2.4 (0.0-7.0) % Baso % (Auto) 0.5 (0.0-3.0) % Neut # (Auto) 3.42 (1.7-7.0) K/uL Lymph # (Auto) 2.00 (0.90-2.90) K/uL Taney # (Auto) 0.50 (0.00-0.90) K/UL Eos # (Auto) 0.15 (0.00-0.50) K/uL Baso # (Auto) 0.03 (0.00-0.30) K/uL Abs Immat Gran (auto) 0.01 (0.00-0.30) K/uL Imm/Tot Granulo (auto) 0.2 % Sodium 138 (135-149) mmol/L Potassium 3.8 (3.6-5.1) mmol/L Chloride 104 (96-114) mmol/L Carbon Dioxide 25 (20-32) mmol/L Anion Gap 9 (7-15) mEq/L BUN 18 (7-30) mg/dL Creatinine 0.7 (0.5-1.5) mg/dL Estimated Creat Clear 39.04 Estimated GFR 91 ml/min Glucose 117 H (60-115) mg/dL Calcium 9.4 (8.4-10.6) mg/dL Magnesium 1.6 (1.5-2.6) mg/dL Total Bilirubin 0.8 (0.1-1.5) mg/dL AST 27 (12-35) U/L ALT 25 (4-35) U/L Alkaline Phosphatase 63 (40-150) U/L Troponin I < 0.01 (0.01-0.04) ng/mL NT-Pro-B Natriuret Pep 818 H (See Note) pg/mL Total Protein 6.8 (6.0-8.3) g/dL Albumin 4.3 (3.3-5.0) g/dL TSH 2.880 (0.270-4.200) uIU/mL Imaging Data Chest x-ray: Attestation: I have reviewed the pertinent imaging results. My impression: Patient does have cardiomegaly and congestive changes on my preliminary review of her portable chest x-ray. Radiologist's impression: Patient: NENITA JACOBS Facility:?[facility] Patient ID:?[id number] Site Patient ID:?[id number]. Site :?[id number] Study:?XRay-Chest Portable one view-11/19/2024 9:15:35 AM Ordering Physician:Monico Abrams Final Report: INDICATION: AFib with RVR TECHNIQUE: Chest 1 view. COMPARISON: None. FINDINGS: Cardiovasculature and mediastinum: Cardiomegaly. Unremarkable mediastinum. Lungs and pleural spaces: No consolidative opacity. Bilateral perihilar and right lower lobe interstitial thickening. No pleural effusion. No pneumothorax. Bones and soft tissues: No significant findings. IMPRESSION: Cardiomegaly with probable mild pulmonary edema. Dictated by Debbi Barr MD @ 11/19/2024 9:28:13 AM (Electronic Signature) ECG Data Attestation: I personally reviewed and interpreted this ECG as follows: ( Atrial fibrillation with RVR, 151 beats per minute.) ECG interpretation date: 11/19/24 ECG interpretation time: 09:03 Prior ECG tracings: available for review ( Compared to EKG from clinic today.) Critical Care Time Critical Care Time Critical Care Time: Yes Attestation: The patient required my highest level preparedness to intervene emergently and I personally spent this critical care time directly and personally managing the patient. This critical care time included: Obtaining a history; Examining the patient; Pulse oximetry; Ordering and reviewing of studies; Arranging urgent treatment with development of a management plan; Evaluation of patients response to treatment; Frequent reassessment discussions with other providers. This critical care time was performed to assess and manage the high probability of imminent life-threatening deterioration that could result in multiorgan failure. It was exclusive of separate billable procedures and treating other patients and teaching time. Total Critical Care Time in Minutes: 30 Discharge Plan Discharge Clinical Impression: Atrial fibrillation with rapid ventricular response Congestive heart failure Qualifiers: Heart failure type: unspecified Heart failure chronicity: acute Qualified Code(s): I50.9 - Heart failure, unspecified Patient Disposition: Admitted As Inpatient
--- NOTE | 2024-11-19 08:54 | CRLHL7_ITS ---
For Patients: As a result of the Cures Act, medical imaging exams and procedure reports are released immediately into your electronic medical record. You may view this report before your referring provider. If you have questions, please contact your health care provider. INDICATION: AFib with RVR TECHNIQUE: Chest 1 view. COMPARISON: None. FINDINGS: Cardiovasculature and mediastinum: Cardiomegaly. Unremarkable mediastinum. Lungs and pleural spaces: No consolidative opacity. Bilateral perihilar and right lower lobe interstitial thickening. No pleural effusion. No pneumothorax. Bones and soft tissues: No significant findings. IMPRESSION: Cardiomegaly with probable mild pulmonary edema. Dictated by Debbi Barr MD @ 11/19/2024 9:28:13 AM (Electronically Signed)
[2024-11-19 09:03] LABS: Hematocrit* 44.1 % (33.0-51.0); Hemoglobin* 14.1 gm/dL (12.0-16.0); Immature Granulocytes Abs Auto 0.01 K/uL (0.00-0.30); Immature Granulocytes Pct Auto 0.2 %; Lymphocytes Absolute Auto 2.00 K/uL (0.90-2.90); Mean Corpuscular HGB Conc 32 gm/dL (32-36); Mean Corpuscular Hemoglobin 29 pg (26-34); Mean Corpuscular Volume 90 fL (80-100); RDW Coefficient of Variation % 13.9 % (11.5-15.5); Red Blood Count* 4.90 m/uL (4.00-5.20); White Blood Count* 6.16 K/uL (4.50-11.00)
[2024-11-19 09:04] LABS: Slide Review Reflex No
[2024-11-19] MEDS: dilTIAZem 5 MG/ML inj IVP (09:14)
[2024-11-19 09:16] LABS: Chloride* 104 mmol/L (96-114)
[2024-11-19 09:17] LABS: Albumin* 4.3 g/dL (3.3-5.0); Potassium* 3.8 mmol/L (3.6-5.1); Sodium* 138 mmol/L (135-149)
[2024-11-19 09:19] LABS: Alanine Aminotransferase* 25 U/L (4-35); Anion Gap 9 mEq/L (7-15); Aspartate Amino Transferase* 27 U/L (12-35); Blood Urea Nitrogen* 18 mg/dL (7-30); Carbon Dioxide* 25 mmol/L (20-32); Creatinine* 0.7 mg/dL (0.5-1.5); Est. Creatinine Clearance* 39.04; Estimated Glomerular Filt Rate 91 ml/min; Total Protein* 6.8 g/dL (6.0-8.3)
[2024-11-19 09:20] LABS: Alkaline Phosphatase* 63 U/L (40-150); Bilirubin Total* 0.8 mg/dL (0.1-1.5); Calcium* 9.4 mg/dL (8.4-10.6); Glucose* 117 mg/dL (60-115)
[2024-11-19 09:32] LABS: NT Pro B Type NatriureticPept* 818 pg/mL (See Note)
[2024-11-19 10:13] LABS: TSH With Reflex to FT4* 2.880 uIU/mL (0.270-4.200)
[2024-11-19] MEDS: METOPROLOL TARTRATE 25 MG TABLET PO ×4 (10:13→21:25)
[2024-11-19] MEDS: METOPROLOL TARTRATE 1 MG/ML inj 5 MG IVP (10:14)
[2024-11-19] MEDS: MAGNESIUM SULF 1 G/100 ML 1 GM/100 ML PIGGYBACK IVPB (10:19)
[2024-11-19] MEDS: APIXABAN 5 MG TABLET PO ×2 (11:02→21:22)
[2024-11-19] MEDS: FUROSEMIDE 10 MG/ML inj 20 MG IVP (11:04)
--- NOTE | 2024-11-19 12:28 | PM.IMHP1 ---
Assessment and Plan Assessment and plan (1) Atrial fibrillation with rapid ventricular response: Problem comment: -IV Dilt in the ER was ineffective -IV metoprolol and then oral metoprolol are working better but haven't achieved rate less than 110 for any length of time -IV magnesium -Oral Eliquis -Scheduled oral metoprolol with hold parameters -Echo shows some tachy arrhythmia induced systolic dysfunction Status: Acute (2) HFrEF (heart failure with reduced ejection fraction): Problem comment: -likely related to tachyarrhythmia -IV furosemide has been beneficial for her symptoms -will continue to follow volume status Status: Acute (3) HTN (hypertension): Problem comment: -home meds include amlodipine and losartan. I will have these on hold while she is getting metoprolol. Status: Acute (4) Hyperlipidemia: Problem comment: -continue home statin and fish oils Status: Acute (5) Gluten intolerance: Status: Acute (6) GERD (gastroesophageal reflux disease): Problem comment: -continue omeprazole and Pepcid Status: Acute Hospitalist- H&P: HPI History of Present Illness Date Seen: 11/19/24 Chief complaint: Shortness of breath Narrative: ADMISSION HISTORY AND PHYSICAL - HOSPITALIST Chief Complaint: SOB/BENAVIDEZ, palpitations HPI: Ana is a 74-year-old with a history hyperlipidemia, hypertension, GERD and gluten intolerance that presented for an outpatient stress echocardiogram this morning. Initial EKG showed AFib with RVR. Her heart rate was in the 150s. She was evaluated by a primary care physician and then sent to the ED for further management. She had been scheduled for a stress echocardiogram given 3-4 weeks of increasing dyspnea on exertion. She had very little chest pain throughout the last month. Her exertional dyspnea was getting worse. She is a nonsmoker, no history of asthma or COPD. No history of cancer. She actually thought well maybe this is AFib when she had some prominent palpitations 1 evening. It does seem like it was mostly paroxysmal in the beginning and has been more constant in the last week or so. Apparently she had seen her PCP (no ekg done) and has had PFTs and ENT evaluation. ER COURSE: EKG, labs, IV Lasix, IV diltiazem, IV metoprolol and oral metoprolol. Oral anticoagulation was started. One-view chest x-ray showed cardiomegaly with probable pulmonary edema. CODE STATUS: Full code PCP: Mita Matute EMERGENCY CONTACT PLAN: 's contact information is on record I've updated the PFSH, medications and allergies in the Expanse tabs. INVESTIGATIONS: LABS/MICRO/ECG/IMAGING Afebrile. Blood pressure is 120s over 90s. Pulse rate as high as 156, currently 115-125. Irregular. Respiratory rate 18 to 21 Pulse ox as low as 87% requiring 1-2 L. - after IV diuresis she has been in the low 90s without oxygen. Her weight is 89 kilos CBC is normal and unremarkable chemistries are completely reassuring. Blood glucose 117. Normal TSH. low normal magnesium. Chest x-ray showed mild pulmonary edema and cardiomegaly. Echo has already been done. This shows normal ventricular size, normal wall thickness. There is a mildly reduced systolic function calculated at 40 6%. There is some moderate mitral and tricuspid regurgitation but otherwise no significant valvular disease. There is moderate by atrial enlargement. REVIEW OF SYSTEMS: 12-point ROS completed with patient and negative unless otherwise stated in HPI or below. PHYSICAL EXAM: CONSTITUTIONAL: Conversive, good historian. A/O. Knows setting and context. She actually looks pretty comfortable. GENERAL: Well-developed and above ideal body weight, in no respiratory distress. VITAL SIGNS: see record. HEENT: Sclerae are anicteric. No petechiae. CARDIAC: rhythm irregularly irregular. There is no S3 or rub. No harsh murmurs. Extremities show trace edema with symmetrical pulses. PULM: good air entry with no wheeze. NEURO: Speech is fluent. A brief neurologic exam is negative. SKIN: No rashes, petechiae, concerning changes PSYCHIATRIC: Euthymic. ADMIT TO MEDSURG: FLOOR CARE DVT: Eliquis GI: PO intake Time spent: Today I spent 75 minutes seeing the patient, discussing the patient with ER staff, reviewing Expanse and EPIC notes/diagnostics, discussing the care plan with our care time that includes social work, PT/OT, pharmacy, RT, nursing home and documenting my impressions and plan in the medical record. MEDICAL NECESSITY FOR HOSPITALIZATION Anticipated midnights in the hospital: 2 Admitting diagnosis: Atrial fibrillation, RVR. HFrEF (acute secondary to tachyarrhythmia) Risk of morbidity and mortality: Moderate to high Acuity is characterized as high and reflected in: Advanced age, prolonged symptoms, difficult to achieve rate control, acute CHF This patient will require hospital services as outlined in the assessment and plan in order to stabilize and be safely discharged to a lower level of care. Because of the risk and acuity as described above, this patient cannot be managed at a lower level of care. LENGTH OF STAY: 2 IP ? Anticipated LOS>2 midnights due to acuity of clinical presentation requiring inpatient level of care [facility] Medical History Hyperlipidemia ?E78.5 - Hyperlipidemia, unspecified (ICD-10) Gluten intolerance ?K90.41 - Non-celiac gluten sensitivity (ICD-10) GERD (gastroesophageal reflux disease) ?K21.9 - Gastro-esophageal reflux disease without esophagitis (ICD-10) HTN (hypertension) ?I10 - Essential (primary) hypertension (ICD-10) Surgical History S/P CEDRIC-BSO ?Z90.710 - Acquired absence of both cervix and uterus (ICD-10) ?Z90.722 - Acquired absence of ovaries, bilateral (ICD-10) ?Z90.79 - Acquired absence of other genital organ(s) (ICD-10) History of knee replacement ?Z96.659 - Presence of unspecified artificial knee joint (ICD-10) Social History (Updated 11/19/24 @ 14:40 by Lori Wang MD) Narrative: retired commercial loan analyst. no etoh or smoking hx. . three children. one by suicide in 2022. What is your current living situation?: I presently have a place to live Problems where you live: no known problems Problems where you live details: N/A In the past 12 months, utilities in danger of being shut off: no In past 12 months, lack of transportation kept you from medical appts, meetings, work, or getting things needed for daily living: no In the past 12 mos, have been you worried that your food would run out before you had money to buy more?: never true In the past 12 mos, the food you bought just didn't last and you didn't have money to buy more?: never true Smoking Status: Never smoker How often do you have a drink containing alcohol: never AUDIT-C Alcohol total score: 0 Non-prescribed substance use: denies use Caffeine: No How often does anyone, including family, friends and others, physically hurt you: never How often does anyone, including family, friends and others, insult or talk down to you: never How often does anyone, including family, friends and others, threaten you with harm: never How often does anyone, including family, friends and others, scream or curse at you: never Meds Home Medications and Allergies Home Medications ?Medication ?Instructions ?Recorded ?Confirmed ?Type alendronate 70 mg tablet 70 mg PO QWEEK 11/19/24 11/19/24 History amlodipine 5 mg tablet 5 mg PO DAILY 11/19/24 11/19/24 History ipratropium bromide 42 mcg (0.06 intranasal 11/19/24 History %) nasal spray losartan 25 mg tablet 25 mg PO DAILY 11/19/24 11/19/24 History omeprazole 40 mg capsule,delayed 40 mg PO DAILY 11/19/24 11/19/24 History release rosuvastatin 10 mg tablet 10 mg PO QPM 11/19/24 11/19/24 History Allergies Allergy/AdvReac Type Severity Reaction Status Date / Time gluten Allergy Verified 11/19/24 14:21 narcotics AdvReac Intermediate vomiting Uncoded 11/19/24 08:37 Exam Const: Vital Signs, click to edit/add: Vital Signs - 24 hr 11/19/24 08:33 11/19/24 08:33 11/19/24 08:36 Temperature 98.2 F Pulse Rate 130 H Pulse Rate [Pulse Oximeter] 156 H Respiratory Rate 18 25 H Blood Pressure 121/100 H Blood Pressure [Ri ght Upper Arm] 121/100 H Pulse Oximetry 96 92 95 Oxygen Delivery Me thod Room Air Oxygen Flow Rate 11/19/24 08:37 11/19/24 08:45 11/19/24 09:00 Temperature Pulse Rate 129 H 144 H 141 H Pulse Rate [Pulse Oximeter] Respiratory Rate 19 13 Blood Pressure Blood Pressure [Ri ght Upper Arm] Pulse Oximetry 96 95 94 Oxygen Delivery Me thod Oxygen Flow Rate 11/19/24 09:01 11/19/24 09:15 11/19/24 09:30 Temperature Pulse Rate 134 H 135 H 119 H Pulse Rate [Pulse Oximeter] Respiratory Rate 24 Blood Pressure 119/107 H Blood Pressure [Ri ght Upper Arm] Pulse Oximetry 93 94 91 Oxygen Delivery Me thod Oxygen Flow Rate 11/19/24 09:31 11/19/24 09:45 11/19/24 10:00 Temperature Pulse Rate 116 H 133 H 115 H Pulse Rate [Pulse Oximeter] Respiratory Rate 15 15 Blood Pressure 125/96 H Blood Pressure [Ri ght Upper Arm] Pulse Oximetry 91 91 89 Oxygen Delivery Me thod Oxygen Flow Rate 11/19/24 10:02 11/19/24 10:15 11/19/24 10:30 Temperature Pulse Rate 121 H 134 H 111 H Pulse Rate [Pulse Oximeter] Respiratory Rate 22 22 13 Blood Pressure 107/67 Blood Pressure [Ri ght Upper Arm] Pulse Oximetry 91 93 90 Oxygen Delivery Me thod Oxygen Flow Rate 11/19/24 10:32 11/19/24 10:45 11/19/24 11:00 Temperature Pulse Rate 105 H 95 Pulse Rate [Pulse Oximeter] Respiratory Rate 16 Blood Pressure 105/85 Blood Pressure [Ri ght Upper Arm] Pulse Oximetry 92 87 L 88 Oxygen Delivery Me thod Nasal Cannula Oxygen Flow Rate 2 11/19/24 11:00 11/19/24 11:01 11/19/24 11:15 Temperature Pulse Rate 96 83 104 H Pulse Rate [Pulse Oximeter] Respiratory Rate 16 21 Blood Pressure 120/94 H Blood Pressure [Ri ght Upper Arm] Pulse Oximetry 92 93 91 Oxygen Delivery Me thod Oxygen Flow Rate Hospitalist - H&P: Result Labs Labs: Short CBC 11/19/24 Range/Units 08:52 WBC 6.16 (4.50-11.00) K/uL Hgb 14.1 (12.0-16.0) gm/dL Hct 44.1 (33.0-51.0) % Plt Count 223 (140-440) K/uL BMP 11/19/24 08:52 Sodium 138 Potassium 3.8 Chloride 104 Carbon Dioxide 25 BUN 18 Creatinine 0.7 Glucose 117 H Calcium 9.4 Cardiac Enzymes 11/19/24 Range/Units 08:52 Troponin I < 0.01 (0.01-0.04) ng/mL Liver Function 11/19/24 Range/Units 08:52 Total Bilirubin 0.8 (0.1-1.5) mg/dL AST 27 (12-35) U/L ALT 25 (4-35) U/L Alkaline Phosphatase 63 (40-150) U/L Albumin 4.3 (3.3-5.0) g/dL
[2024-11-19] MEDS: MAGNESIUM IV 2 GM/50 ML PIGGYBACK IVPB (14:42)
[2024-11-19] MEDS: SODIUM CHLORIDE 0.9 % (FLUSH) 10 ML SYRINGE 5 ML IVF ×2 (16:34→21:26)
[2024-11-19] MEDS: ROSUVASTATIN CALCIUM 10 MG TABLET PO (17:52)
--- NOTE | 2024-11-19 23:01 | PC.NURSE ---
Pt is alert and oriented. Lungs clear, denies SOB. Tele shows afib, HR 100-120. Pt denies pain and is independent
[2024-11-20] VITALS (10 sets, daily range): BP systolic 112–121; BP diastolic 72–100; PULSE 81–118; RESP 16–18; TEMP 36.6–36.8; O2SAT 96–98
[2024-11-20] MEDS: METOPROLOL TARTRATE 25 MG TABLET PO ×2 (02:47→05:23)
--- NOTE | 2024-11-20 05:12 | PC.NURSE ---
Shift note: Patient is doing well. Alert and oriented. Vitally stable. At 0315, patient reported of transient chest heaviness that lasted for few seconds. EKG was taken and patient monitored. No further symptoms reported. Other vitals stable. Pt continue to have A.fib. HR irregular and recorded between 87 and 118. No chest pain or SOB recorded.
[2024-11-20 06:38] LABS: HCO3 VBG 25 mmol/L (21-28); PCO2 VBG 40 mmHG (40-50); PO2 VBG 55.6 mmHG (25-47); pH VBG 7.397 (7.32-7.43)
[2024-11-20 06:50] LABS: Hematocrit* 42.0 % (33.0-51.0); Hemoglobin* 13.6 gm/dL (12.0-16.0); Mean Corpuscular HGB Conc 32 gm/dL (32-36); Mean Corpuscular Hemoglobin 29 pg (26-34); Mean Corpuscular Volume 90 fL (80-100); Red Blood Count* 4.69 m/uL (4.00-5.20); White Blood Count* 6.78 K/uL (4.50-11.00)
[2024-11-20 06:52] LABS: Slide Review Reflex No
[2024-11-20 07:07] LABS: Chloride* 104 mmol/L (96-114); Potassium* 4.0 mmol/L (3.6-5.1); Sodium* 134 mmol/L (135-149)
[2024-11-20 07:09] LABS: Blood Urea Nitrogen* 16 mg/dL (7-30); Creatinine* 0.7 mg/dL (0.5-1.5); Est. Creatinine Clearance* 39.04; Estimated Glomerular Filt Rate 91 ml/min
[2024-11-20 07:10] LABS: Anion Gap 5 mEq/L (7-15); Calcium* 8.9 mg/dL (8.4-10.6); Carbon Dioxide* 25 mmol/L (20-32); Glucose* 112 mg/dL (60-115)
[2024-11-20] MEDS: METOPROLOL TARTRATE 100 MG TABLET PO ×3 (08:21→21:03)
[2024-11-20] MEDS: APIXABAN 5 MG TABLET PO ×2 (08:44→21:04)
[2024-11-20] MEDS: SODIUM CHLORIDE 0.9 % (FLUSH) 10 ML SYRINGE 5 ML IVF ×3 (08:45→21:04)
[2024-11-20] MEDS: METOPROLOL TARTRATE 1 MG/ML inj 5 MG IVP (08:55)
--- NOTE | 2024-11-20 09:21 | PM.IMPN1 ---
Assessment and Plan Assessment and plan (1) Atrial fibrillation with rapid ventricular response: Problem comment: -IV Dilt in the ER was ineffective -IV metoprolol and then oral metoprolol are working better but haven't achieved rate less than 110 for any length of time -IV magnesium x1 -Oral Eliquis -Scheduled oral metoprolol with hold parameters -Echo shows some tachy arrhythmia induced systolic dysfunction Status: Acute (2) HFrEF (heart failure with reduced ejection fraction): Problem comment: -likely related to tachyarrhythmia -IV furosemide has been beneficial for her symptoms -will continue to follow volume status Status: Acute (3) HTN (hypertension): Problem comment: -home meds include amlodipine and losartan. I will have these on hold while she is getting metoprolol. Status: Acute (4) GERD (gastroesophageal reflux disease): Problem comment: -continue omeprazole and Pepcid Status: Acute Subjective Date Seen: 11/20/24 Interval history: Daily Progress Note - Hospital #: 2 CC: 24 HOUR UPDATE: Patient has felt improved since the IV Lasix dose yesterday. Her rate control is still been a challenge. Her heart rate has been 90-140. She has been receiving oral metoprolol at 25 mg Q 4. Notable Labs, Micro, Rads, Interventions: Blood pressure is 118/89. Pulse 110. Rest per 16. Afebrile. 98% on room air. Labs reviewed. CBC unremarkable. No significant concerns on chemistries. TSH is normal. Troponin was undetectable yesterday. Echo was completed yesterday afternoon. This shows a mildly reduced global systolic function of 46%. She has a right ventricle cavity size is normal with normal function. She has some moderate mitral and tricuspid regurgitation. Moderate biatrial enlargement. Her chest x-ray showed some mild pulmonary edema. Objective: Alert. Independent about the room. Vitals: see above Lungs: Clear. Cardiac: Irregularly irregular. Tachycardic. No edema. Disposition/Potential discharge - Home with when rate is controlled. Today I spent 50minutes seeing the patient, reviewing Expanse and EPIC notes/diagnostics, discussing the care plan with our care time that includes social work, PT/OT, pharmacy, RT, half-way and documenting my impressions and plan in the medical record. Exam Const: Vital Signs, click to edit/add: Vital Signs - 24 hr 11/19/24 09:30 11/19/24 09:31 11/19/24 09:45 Temperature Pulse Rate 119 H 116 H 133 H Pulse Rate [Pulse Oximeter] Respiratory Rate 24 15 Blood Pressure 125/96 H Blood Pressure [Ri ght Arm] Pulse Oximetry 91 91 91 Oxygen Delivery Me thod Oxygen Flow Rate 11/19/24 10:00 11/19/24 10:02 11/19/24 10:15 Temperature Pulse Rate 115 H 121 H 134 H Pulse Rate [Pulse Oximeter] Respiratory Rate 15 22 22 Blood Pressure 107/67 Blood Pressure [Ri ght Arm] Pulse Oximetry 89 91 93 Oxygen Delivery Me thod Oxygen Flow Rate 11/19/24 10:30 11/19/24 10:32 11/19/24 10:45 Temperature Pulse Rate 111 H 105 H 95 Pulse Rate [Pulse Oximeter] Respiratory Rate 13 16 Blood Pressure 105/85 Blood Pressure [Ri ght Arm] Pulse Oximetry 90 92 87 L Oxygen Delivery Me thod Oxygen Flow Rate 11/19/24 11:00 11/19/24 11:00 11/19/24 11:01 Temperature Pulse Rate 96 83 Pulse Rate [Pulse Oximeter] Respiratory Rate 16 Blood Pressure 120/94 H Blood Pressure [Ri ght Arm] Pulse Oximetry 88 92 93 Oxygen Delivery Me thod Nasal Cannula Oxygen Flow Rate 2 11/19/24 11:15 11/19/24 12:32 11/19/24 12:32 Temperature 97.8 F Pulse Rate 104 H Pulse Rate [Pulse Oximeter] Respiratory Rate 21 18 Blood Pressure Blood Pressure [Ri ght Arm] 119/93 H Pulse Oximetry 91 93 93 Oxygen Delivery Me thod Room Air Oxygen Flow Rate 11/19/24 12:32 11/19/24 12:37 11/19/24 15:00 Temperature Pulse Rate 120 H 99 Pulse Rate [Pulse Oximeter] Respiratory Rate 18 Blood Pressure Blood Pressure [Ri ght Arm] Pulse Oximetry 93 Oxygen Delivery Me thod Room Air Oxygen Flow Rate 11/19/24 15:42 11/19/24 19:00 11/19/24 21:25 Temperature 97.8 F Pulse Rate Pulse Rate [Pulse Oximeter] 110 H 92 108 H Respiratory Rate 17 17 Blood Pressure Blood Pressure [Ri ght Arm] 109/81 109/78 117/84 Pulse Oximetry 96 95 Oxygen Delivery Me thod Room Air Room Air Oxygen Flow Rate 11/19/24 23:00 11/19/24 23:00 11/20/24 02:48 Temperature 98.1 F 97.9 F Pulse Rate Pulse Rate [Pulse Oximeter] 90 90 90 Respiratory Rate 18 18 18 Blood Pressure Blood Pressure [Ri ght Arm] 116/84 121/94 H Pulse Oximetry 97 97 Oxygen Delivery Me thod Room Air Room Air Oxygen Flow Rate 11/20/24 02:56 11/20/24 07:00 11/20/24 09:04 Temperature 97.9 F Pulse Rate 109 H Pulse Rate [Pulse Oximeter] 84 110 H Respiratory Rate 16 16 Blood Pressure Blood [facility]] 113/90 H 118/89 Pulse Oximetry 96 98 Oxygen Delivery [place] thod Room Air Room Air Oxygen Flow Rate Labs Labs: Laboratory Results - last 24 hr 11/19/24 11/20/24 08:52 06:22 WBC 6.78 RBC 4.69 Hgb 13.6 Hct 42.0 MCV 90 MCH 29 MCHC 32 Plt Count 200 VBG pH 7.397 VBG pCO2 40 VBG pO2 55.6 H VBG HCO3 25 Sodium 138 134 L Potassium 3.8 4.0 Chloride 104 104 Carbon Dioxide 25 25 Anion Gap 9 5 L BUN 18 16 Creatinine 0.7 0.7 Estimated Creat Clear 39.04 39.04 Estimated GFR 91 91 Glucose 117 H 112 Calcium 9.4 8.9 Magnesium 1.6 1.9 Total Bilirubin 0.8 AST 27 ALT 25 Alkaline Phosphatase 63 Troponin I < 0.01 NT-Pro-B Natriuret Pep 818 H Total Protein 6.8 Albumin 4.3 TSH 2.880
[2024-11-20] MEDS: FUROSEMIDE 20 MG TABLET PO (10:19)
[2024-11-20] MEDS: OMEPRAZOLE 20 MG CAPSULE DR 40 MG PO (10:23)
--- NOTE | 2024-11-20 14:58 | NUTR.NU ---
Nutrition: Visited with patient related to new diagnosis of atrial fib with heart failure. Height 5' 2, Weight 195 lbs, BMI 35.8. Diet Regular. Heart Healthy Menu in room. Patient also with gluten intolerance. Provided her a gluten free menu as well. Patient lives at home with . She reports limiting sodium at home, she does butter bread, but cooks with olive oil. They emphasize chicken and fish, with some beef and pork for protein at meals. She reports they have a big garden and are currently eating a lot of fresh vegetables. She accepted the Heart Healthy Nutrition handout (NCM). Encouraged patient to contact us with questions prn.
[2024-11-20] MEDS: ROSUVASTATIN CALCIUM 10 MG TABLET PO (17:35)
[2024-11-21] VITALS (25 sets, daily range): BP systolic 89–133; BP diastolic 60–111; PULSE 85–124; RESP 16–18; TEMP 36.6–36.9; O2SAT 95–100
[2024-11-21 06:59] LABS: Chloride* 105 mmol/L (96-114); Potassium* 4.1 mmol/L (3.6-5.1); Sodium* 136 mmol/L (135-149)
[2024-11-21 07:02] LABS: Anion Gap 5 mEq/L (7-15); Blood Urea Nitrogen* 21 mg/dL (7-30); Calcium* 8.9 mg/dL (8.4-10.6); Carbon Dioxide* 26 mmol/L (20-32); Creatinine* 0.8 mg/dL (0.5-1.5); Est. Creatinine Clearance* 39.04; Estimated Glomerular Filt Rate 77 ml/min; Glucose* 97 mg/dL (60-115)
[2024-11-21] MEDS: OMEPRAZOLE 20 MG CAPSULE DR 40 MG PO (07:39)
[2024-11-21] MEDS: APIXABAN 5 MG TABLET PO ×2 (07:39→21:20)
[2024-11-21] MEDS: METOPROLOL TARTRATE 100 MG TABLET PO (07:39)
[2024-11-21] MEDS: SODIUM CHLORIDE 0.9 % (FLUSH) 10 ML SYRINGE 5 ML IVF (07:40)
--- NOTE | 2024-11-21 10:16 | PM.IMPN1 ---
Assessment and Plan Assessment and plan (1) Atrial fibrillation with rapid ventricular response: Problem comment: -Improved rate control with 100mg BID -Adding Diltiazem of 30mg [id number] with the plan to transition to an XR dose on 11/22 -IV magnesium x1 -Oral Eliquis -Echo shows some tachy arrhythmia induced systolic dysfunction Status: Acute (2) HFrEF (heart failure with reduced ejection fraction): Problem comment: -likely related to tachyarrhythmia -Lasix 20 mg po qam -will continue to follow volume status Status: Acute (3) HTN (hypertension): Problem comment: -home meds include amlodipine and losartan. I will have these on hold while she is getting metoprolol. Status: Acute (4) GERD (gastroesophageal reflux disease): Problem comment: -continue omeprazole and Pepcid Status: Acute Subjective Date Seen: 11/21/24 Interval history: Daily Progress Note - Hospital Medicine #: 3 CC: 24 HOUR UPDATE: Overnight; pt is comfortable. She is frustrated that when she walks she gets tachy to the 140s and feels SOB. It does go back to a baseline of 100-110 within a few minutes. Notable Labs, Micro, Rads, Interventions: Blood pressure is 133/95. Pulse 103. Rest per 16. Afebrile. 98% on room air. Labs reviewed. CBC unremarkable. No significant concerns on chemistries. TSH is normal. Troponin was undetectable yesterday. Echo was reviewed. This shows a mildly reduced global systolic function of 46%. She has a right ventricle cavity size is normal with normal function. She has some moderate mitral and tricuspid regurgitation. Moderate biatrial enlargement. Her chest x-ray showed some mild pulmonary edema. Objective: Alert. Independent about the room. Vitals: see above Lungs: Clear. Cardiac: Irregularly irregular. Tachycardic. No edema. Disposition/Potential discharge - Home with when rate is controlled. Today I spent 50minutes seeing the patient, reviewing Expanse and EPIC notes/diagnostics, discussing the care plan with our care time that includes social work, PT/OT, pharmacy, RT, prison and documenting my impressions and plan in the medical record. Exam Const: Vital Signs, click to edit/add: Vital Signs - 24 hr 11/20/24 11:00 11/20/24 12:32 11/20/24 15:00 Temperature 97.9 F 98 F Pulse Rate Pulse Rate [Pulse Oximeter] 110 H 102 H Respiratory Rate 16 16 Blood Pressure [Ri ght Arm] 120/85 112/72 Pulse Oximetry 98 98 97 Oxygen Delivery Me thod Room Air Room Air 11/20/24 15:00 11/20/24 15:00 11/20/24 19:00 Temperature 98.2 F Pulse Rate 118 H Pulse Rate [Pulse Oximeter] 102 H 106 H Respiratory Rate 16 16 Blood Pressure [Ri ght Arm] 120/100 H Pulse Oximetry 97 Oxygen Delivery Me thod Room Air 11/20/24 23:00 11/20/24 23:00 11/20/24 23:00 Temperature 98.1 F Pulse Rate 111 H Pulse Rate [Pulse Oximeter] 81 81 Respiratory Rate 16 16 Blood Pressure [Ri ght Arm] 118/95 H Pulse Oximetry 98 Oxygen Delivery Me thod Room Air 11/21/24 03:00 11/21/24 07:36 Temperature 98.1 F 98.4 F Pulse Rate Pulse Rate [Pulse Oximeter] 111 H 103 H Respiratory Rate 16 16 Blood Pressure [Ri ght Arm] 126/101 H 133/95 H Pulse Oximetry 100 98 Oxygen Delivery Me thod Room Air Room Air Labs Labs: Laboratory Results - last 24 hr 11/21/24 06:25 Sodium 136 Potassium 4.1 Chloride 105 Carbon Dioxide 26 Anion Gap 5 L BUN 21 Creatinine 0.8 Estimated Creat Clear 39.04 Estimated GFR 77 Glucose 97 Calcium 8.9
[2024-11-21] MEDS: FUROSEMIDE 20 MG TABLET PO (10:34)
[2024-11-21] MEDS: METOPROLOL TARTRATE 1 MG/ML inj 5 MG IVP (12:24)
--- NOTE | 2024-11-21 12:28 | PC.NURSE ---
Patients heart rate has been sustained above 110 for more than 30min. Has had 2 PO meds this morning and no change. 5mg Metoprolol IV given. BP within normal limits.
--- NOTE | 2024-11-21 14:00 | PC.NURSE ---
BP low at time of diltiazem was due. Spoke with Dr. Wang. Will reassess BP at 1430 and decide on Diltiazem.
--- NOTE | 2024-11-21 14:37 | PC.NURSE ---
Dr. Wang notified of BP at this time. Wants to collaborate with evening doc before deciding on what to do with Diltiazem dose.
--- NOTE | 2024-11-21 14:38 | PC.NURSE ---
End of shift report: Patient up independently in room. Showered. Tele remains Afib/Aflutter RVR. Patient has some shortness of breath with activity. Denies Chest pain. PIV patent. Voiding without difficulty, had a BM today. Lung sounds clear, bowel sounds active, +2 pitting edema in ankles. Patient pleasant and cooperative. See other notes about VS and meds.
[2024-11-21] MEDS: ROSUVASTATIN CALCIUM 10 MG TABLET PO (17:35)
--- NOTE | 2024-11-21 19:32 | PC.NURSE ---
End of shift [id number] - RN took over pt care at approximately 1530. Pt alert, oriented, cooperative. Up independently in room. Tolerating RA and regular diet. Denies pain, SOB, n/v. Reports eagerness to return home, but is understanding of the circumstances of her hospital stay. Appears to be resting comfortably in chair with call light within reach at end of shift.
[2024-11-21] MEDS: METOPROLOL SUCCINATE (XL) 100 MG TAB PO (21:20)
[2024-11-22] VITALS (7 sets, daily range): BP systolic 104–123; BP diastolic 75–98; PULSE 77–103; RESP 16; TEMP 36.6–36.8; O2SAT 96–98
[2024-11-22 07:03] LABS: Chloride* 104 mmol/L (96-114); Potassium* 4.2 mmol/L (3.6-5.1); Sodium* 136 mmol/L (135-149)
[2024-11-22 07:06] LABS: Anion Gap 6 mEq/L (7-15); Blood Urea Nitrogen* 23 mg/dL (7-30); Carbon Dioxide* 26 mmol/L (20-32); Creatinine* 0.8 mg/dL (0.5-1.5); Est. Creatinine Clearance* 39.04; Estimated Glomerular Filt Rate 77 ml/min
[2024-11-22 07:07] LABS: Calcium* 8.9 mg/dL (8.4-10.6); Glucose* 99 mg/dL (60-115)
[2024-11-22] MEDS: OMEPRAZOLE 20 MG CAPSULE DR 40 MG PO (08:30)
[2024-11-22] MEDS: APIXABAN 5 MG TABLET PO ×2 (08:30→20:38)
[2024-11-22] MEDS: METOPROLOL SUCCINATE (XL) 100 MG TAB PO ×2 (08:30→20:38)
[2024-11-22] MEDS: FUROSEMIDE 20 MG TABLET PO (08:30)
[2024-11-22] MEDS: SODIUM CHLORIDE 0.9 % (FLUSH) 10 ML SYRINGE 5 ML IVF (08:31)
--- NOTE | 2024-11-22 16:33 | P.IMPN_ITS ---
Assessment and Plan Assessment and plan (1) Atrial fibrillation with rapid ventricular response: Problem comment: -Improved rate control with 100mg BID -Adding Diltiazem of 30mg [id number] with the plan to transition to an XR dose on 11/22 -IV magnesium x1 -Oral Eliquis -Echo shows some tachy arrhythmia induced systolic dysfunction 11/22/2024: Switch to extended-release version of beta-kota and calcium channel kota. Continue to monitor her tolerance of this and possible discharge as early as 24 hours from now if continues to demonstrate stability and improvement Status: Acute (2) HFrEF (heart failure with reduced ejection fraction): Problem comment: -likely related to tachyarrhythmia -Lasix 20 mg po qam -will continue to follow volume status Status: Acute (3) HTN (hypertension): Problem comment: -home meds include amlodipine and losartan. I will have these on hold while she is getting metoprolol. -switch to extended-release metoprolol and diltiazem. Consider low-dose losartan. Status: Acute (4) GERD (gastroesophageal reflux disease): Problem comment: -continue omeprazole and Pepcid Status: Acute Plan 1. Reviewed impression, plans, recommendations with patient 2. Answered her questions to her satisfaction 3. Patient agreeable with above stated plans and recommendations Total Time Spent Total Time Spent: 40 minutes Subjective Date Seen: 11/22/24 Interval history: Hospital day 4. Improving. Tolerating increased activities. No longer having intermittent episodes of chest fluttering or palpitations. Less dyspnea with exertion. Denies chest heaviness, pressure, tightness, pain. Denies syncope or near- syncope. Denies orthostasis. No nausea vomiting. Tolerating oral intake. Exam Narrative: Exam Narrative: Examined patient in her hospital room and in the hallways of the hospital. Independent with transfer, station, gait. Lungs clear to auscultation. Heart tones with chaotic rhythm. No JVD or hepatojugular reflux. Bilateral lower extremity edema, left greater than right, chronic Const: Vital Signs, click to edit/add: Vital Signs - 24 hr 11/21/24 19:00 11/21/24 21:20 11/21/24 23:00 Temperature 98.2 F Pulse Rate Pulse Rate [Pulse Oximeter] 88 100 Respiratory Rate 18 18 Blood Pressure [Ri ght Arm] 118/68 113/78 Pulse Oximetry 97 Oxygen Delivery Me thod Room Air 11/21/24 23:00 11/21/24 23:00 11/22/24 07:52 Temperature 98.2 F 97.8 F Pulse Rate 111 H Pulse Rate [Pulse Oximeter] 100 96 Respiratory Rate 18 16 Blood Pressure [Ri ght Arm] 125/81 123/85 Pulse Oximetry 97 96 Oxygen Delivery Me thod Room Air Room Air 11/22/24 09:29 11/22/24 11:43 11/22/24 11:43 Temperature 98.1 F Pulse Rate 103 H Pulse Rate [Pulse Oximeter] 98 Respiratory Rate 16 Blood Pressure [Ri ght Arm] 108/84 Pulse Oximetry 97 97 Oxygen Delivery Me thod Room Air 11/22/24 16:10 Temperature 98.1 F Pulse Rate Pulse Rate [Pulse Oximeter] 91 Respiratory Rate 16 Blood Pressure [Ri ght Arm] 104/75 Pulse Oximetry 98 Oxygen Delivery Me thod Room Air Labs Labs: Laboratory Results - last 24 hr 11/22/24 06:10 Sodium 136 Potassium 4.2 Chloride 104 Carbon Dioxide 26 Anion Gap 6 L BUN 23 Creatinine 0.8 Estimated Creat Clear 39.04 Estimated GFR 77 Glucose 99 Calcium 8.9
[2024-11-22] MEDS: ROSUVASTATIN CALCIUM 10 MG TABLET PO (17:41)
--- NOTE | 2024-11-22 18:41 | PC.NURSE ---
Pt. ambulating in hallway independently. HR 70s-90s at rest, increases up to 120s with activity. Denies pain and/or SOB.
[2024-11-23] MEDS: OMEPRAZOLE 20 MG CAPSULE DR 40 MG PO (06:50)
[2024-11-23 07:40] VITALS: PULSE 75
[2024-11-23 08:18] VITALS: BP 108/83; PULSE 76; RESP 16; TEMP 36.5; O2SAT 95
[2024-11-23] MEDS: SODIUM CHLORIDE 0.9 % (FLUSH) 10 ML SYRINGE 5 ML IVF (08:21)
[2024-11-23] MEDS: APIXABAN 5 MG TABLET PO (08:21)
[2024-11-23] MEDS: METOPROLOL SUCCINATE (XL) 100 MG TAB PO (08:21)
[2024-11-23] MEDS: FUROSEMIDE 20 MG TABLET PO (08:21)
--- NOTE | 2024-11-23 17:24 | P.DS_ITS ---
DS: Providers Provider Date Seen: 11/23/24 Date of admission: 11/19/24 13:50 Primary care physician: Audrey Matute DO Admitting Clinician: Lori Wang MD Attending Physician on discharge: Darius Infante MD Date of Discharge: 11/23/24 DS: Diagnosis Discharge Diagnosis (1) HFrEF (heart failure with reduced ejection fraction): Status: Acute Problem details: -likely related to tachyarrhythmia -Lasix 20 mg po qam -will continue to follow volume status (2) Atrial fibrillation with rapid ventricular response: Status: Acute Problem details: -Improved rate control with 100mg BID of metoprolol succinate -better rate control with diltiazem-CD 120 mg po bid -Oral Eliquis 5 mg po bid for anticoagulation -Echo shows some tachy arrhythmia induced systolic dysfunction 11/22/2024: Switch to extended-release version of beta-kota and calcium luna nnel kota. Continue to monitor her tolerance of this and possible discharge as early as 24 hours from now if continues to demonstrate stability and improvement (3) Tachycardia induced cardiomyopathy: Status: Acute Problem details: - anticipate eventual resolution with heart rate control (4) HTN (hypertension): Status: Acute Problem details: -home meds amlodipine and losartan were discontinued in hospital -switched to extended-release metoprolol and diltiazem. Consider initiating low-dose losartan in outpatient setting s her condition stabilizes. (5) GERD (gastroesophageal reflux disease): Status: Acute Problem details: -continue omeprazole and Pepcid (6) Hyperlipidemia: Status: Acute Problem details: -continue home statin and fish oils (7) Gluten intolerance: Status: Acute DS: Summary Hospital Course Hospital Course: 74-year-old with a history hyperlipidemia, hypertension, GERD and gluten intolerance that presented for an outpatient stress echocardiogram this morning. Initial EKG showed AFib with RVR. Her heart rate was in the 150s. She was evaluated by a primary care physician and then sent to the ED for further management. She had been scheduled for a stress echocardiogram given 3-4 weeks of increasing dyspnea on exertion. She had very little chest pain throughout the last month. Her exertional dyspnea was getting worse. She is a nonsmoker, no history of asthma or COPD. No history of cancer. She actually thought well maybe this is AFib when she had some prominent palpitations 1 evening. It does seem like it was mostly paroxysmal in the beginning and has been more constant in the last week or so. Apparently she had seen her PCP (no ekg done) and has had PFTs and ENT evaluation. ER COURSE: EKG, labs, IV Lasix, IV diltiazem, IV metoprolol and oral metoprolol. Oral anticoagulation was started. One-view chest x-ray showed cardiomegaly with probable pulmonary edema. CODE STATUS: Full code PCP: Mita Matute Rate control eventually achieved through persistent adjustment in medications. Status at Discharge Functional status at discharge: independent ambulation Overall status at discharge: patient is progressing back to baseline Time Spent with Patient Time attestation: Total time spent providing and/or coordinating discharge services: Time spent: Greater than 30 minutes Exam Narrative: Exam Narrative: Examined patient in her hospital room and in the hallways of the hospital. Independent with transfer, station, gait. Lungs clear to auscultation. Heart tones with chaotic rhythm. No JVD or hepatojugular reflux. Bilateral lower extremity edema, left greater than right, chronic Const: Vital Signs, click to edit/add: Vital Signs - 24 hr 11/22/24 19:00 11/22/24 23:00 11/22/24 23:00 Temperature 98.2 F 98.1 F Pulse Rate Pulse Rate [Pulse Oximeter] 85 85 77 Respiratory Rate 16 16 16 Blood Pressure [Ri ght Arm] 112/82 120/98 H Pulse Oximetry 98 98 Oxygen Delivery Me thod Room Air Room Air 11/22/24 23:00 11/23/24 07:40 11/23/24 08:18 Temperature 97.7 F Pulse Rate 81 75 Pulse Rate [Pulse Oximeter] 76 Respiratory Rate 16 Blood Pressure [Ri ght Arm] 108/83 Pulse Oximetry 95 Oxygen Delivery Me thod Room Air DS: Data Imaging Echo: Radiologist's impression: Transthoracic echocardiogram demonstrates the followin. Normal LV chamber size with mild decrease in function with calculated EF 46% 2. Normal RV chamber size with mild decrease in right ventricular function 3. Moderate mitral regurgitation 4. Moderate tricuspid valve regurgitation 5. Moderate biatrial enlargement 6. Trivial pericardial effusion Discharge Plan Discharge Disposition: Home, Self-Care Date of Admission: 11/19/24 13:50 Attending Provider on Discharge: Darius Infante Primary Care Provider: Audrey Matute Condition: Improved Anticipated Discharge Date/Time: 11/23/24 11:30 Discharge Medications: New metoprolol succinate 100 mg Tablet Extended Release 24 Hr 100 mg PO BID 30 Days Qty: 60 1RF diltiazem HCl [DILT-XR] 120 mg Capsule,Ext.Rel 24h Degradable 120 mg PO BID 30 Days Qty: 60 1RF furosemide 20 mg Tablet 20 mg PO DAILY 30 Days Qty: 30 1RF Eliquis 5 mg Tablet 5 mg PO BID 30 Days Qty: 60 1RF Continued omeprazole 40 mg capsule,delayed release(DR/EC) 40 mg PO DAILY rosuvastatin 10 mg tablet 10 mg PO QPM alendronate 70 mg tablet 70 mg PO QWEEK ipratropium bromide 42 mcg (0.06 %) spray,non-aerosol INTRANASAL Patient Comments: [NO ORIGINAL SIG] Discontinued amlodipine 5 mg tablet 5 mg PO DAILY losartan 25 mg tablet 25 mg PO DAILY Discharge Orders: Discharge Order (Routine); Ordered 11/23/24 Ordered By: Darius Infante Patient Education: Metoprolol (By mouth), Diltiazem (By mouth), Furosemide (By mouth), Apixaban (By mouth), A-fib (Atrial Fibrillation) (DC) Additional Instructions: 1. Keep follow-up appointment with primary director career services as already established for this coming Sunday 2. Return to clinic or hospital sooner if needed Activity Level: No Restrictions and Activity as Tolerated Discharge Diet: 2 gm Sodium Follow Up Appointments: Audrey Matute DO [Primary Care Provider, Family Practice] Forms: Patient Belongings, [facility] Info Instructions
== END 2024-11-23 11:16 | disposition home or self-care (01) | DRG 308 ==
LOC: ED 10:40 → MEDSURG 11:03
PROVIDERS: Admitting Provider Family Medicine; Emergency Provider Family Medicine; PCP Family Medicine; Visit Provider Family Medicine
DX: I48.91 Unspecified atrial fibrillation (principal); I50.21 Acute systolic (congestive) heart failure; K90.41 Non-celiac gluten sensitivity; I11.0 Hypertensive heart disease with heart failure; I43 Cardiomyopathy in diseases classified elsewhere; E78.5 Hyperlipidemia, unspecified; K21.9 Gastro-esophageal reflux disease without esophagitis
CPT/HCPCS: 36415; 71045; 80048; 80053; 82803; 83735; 83880; 84443; 84484; 85025; 85027; 93005; 93306; 94761; 99284; 99285; 99291; A9270; J1938; J3475